=== PATIENT | male | born 1965 | race Caucasian/White ===

== ENCOUNTER 2017-06-19 11:52 | Emergency (ER) | payer OTHER ==
[~2017-06-19] VITALS: Ht 157.5 cm; Wt 80.0 kg
[2017-06-19 11:59] VITALS: Ht 157.5 cm; Wt 80.0 kg
[2017-06-19] MEDS ORDERED: LIDOCAINE 1% (MDV) 20 ML INJ SC ONE ×2 (13:00→13:30)
--- NOTE | 2017-06-19 13:05 | ERD ---
ER Documentation Chief Complaint Date/Time DATE: 06/19/17 TIME: 12:58 Chief Complaint left axilla abcess HPI 51-year-old male presents to the emergency department complaining of 5 days of progressive enlargement of a mass on righ axilla. 2 days ago the patient was seen by his primary care provider and started on Keflex without improvement of his symptoms. Currently, the patient is complaining of pain, 8/ 10, warmth and subjective fever. ROS All systems reviewed and are negative except as per history of present illness. Medications Home Meds Active Scripts Ibuprofen* (Ibuprofen*) 600 Mg Tablet, 600 MG PO Q6 Y for PAIN for 7 Days, #30 TAB Prov:WASHINGTON AC MD 06/19/17 Sulfamethoxazole/Trimethoprim (Sulfamethoxazole-Tmp Ds Tablet) 1 Each Tablet, 1 EACH PO BID for infection for 7 Days, #14 TAB Prov:WASHINGTON AC MD 06/19/17 Allergies Allergies: Coded Allergies: No Known Allergy (Unverified , 12/15/13) PMhx/Soc History of Surgery: No Anesthesia Reaction: No Hx Neurological Disorder: No Hx Respiratory Disorders: No Hx Cardiac Disorders: Yes (hyperlipidemia,HTN) Hx Psychiatric Problems: No Hx Miscellaneous Medical Probl: No Hx Alcohol Use: Yes Hx Substance Use: No Hx Tobacco Use: No Physical Exam Vitals Vital Signs Date Time Temp Pulse Resp B/P Pulse Ox O2 Delivery O2 Flow Rate FiO2 06/19/17 11:59 98.1 80 18 150/67 99 Physical Exam Resp: Clear to auscultation bilaterally Cardio: Regular rate and rhythm, no murmurs Abd: Soft, non tender, non distended. Normal bowel sounds Skin: Right axilla: 4 cm fluctuant wound mass, well-defined, surrounded by erythema Results 24 hrs Current Medications Medications (Trade) Dose Ordered Sig/Sarah Route PRN Reason Start Time Stop Time Status Last Admin Dose Admin Lidocaine (Xylocaine 1% (Mdv) 20 ml) 3 ml ONCE ONCE SC 06/19/17 13:30 06/19/17 13:31 DC Procedures/MDM Abscess I&D: Risk and benefits discussed with the patient. Patient has consented the procedure. Previous asepsis with Betadine, followed with 3ml sc infiltration of lidocaine 1 % without epi. Analgesia achieved, incision with 11 blade performed obtaining abundant pus. Loculations broken with hemostat. Mild bleeding. Pain controlled. Procedure without complications, the patient refers feeling better Departure Diagnosis: Primary Impression: Axillary abscess Condition: Stable WASHINGTON AC MD Jun 19, 2017 13:05
[2017-06-19] MEDS ORDERED: IBUP-1542 PO (13:31)
[2017-06-19] MEDS ORDERED: SULF-182 PO (13:31)
== END 2017-06-19 13:50 | disposition home or self-care (01) ==
LOC: FTE 11:52
DX: L02.412 Cutaneous abscess of left axilla (principal); I10 Essential (primary) hypertension